=== PATIENT | male | born 1995 | race Caucasian/White ===

== ENCOUNTER 2019-06-19 08:39 | Emergency (ER) | payer SELFPAY ==
[~2019-06-19] VITALS: Ht 167.6 cm; Wt 76.2 kg
[2019-06-19] MEDS ORDERED: ALBUTEROL/IPRATROPIUM 2.5MG/0.5MG, 3 ML ONE (09:46)
[2019-06-19] MEDS ORDERED: ALBUTEROL/IPRATROPIUM 2.5MG/0.5MG, 3 ML NPPB SCH (10:00)
[2019-06-19 10:10] LABS: BASOPHILS # (AUTO) 0.05 x10^3/uL (0-0.1); BASOPHILS % (AUTO) 0 % (0-1); EOSINOPHILS # (AUTO) 0.22 x10^3/uL (0-0.4); EOSINOPHILS % (AUTO) 2 % (1-7); LYMPHOCYTES # (AUTO) 2.26 x10^3/uL (1-3.4); LYMPHOCYTES % (AUTO) 17 % (22-44); MD NO; MEAN CORPUSCULAR HEMOGLOBIN 31.5 pg (27.5-34.5); MEAN CORPUSCULAR VOLUME 92.8 fL (81-97); MEAN PLATELET VOLUME 8.4 fL (7.4-10.4); MONOCYTES # (AUTO) 0.86 x10^3/uL (0.2-0.8); MONOCYTES % (AUTO) 6 % (2-9); NEUTROPHILS # (AUTO) 10.04 x10^3/uL (1.8-6.8); NEUTROPHILS % (AUTO) 75 % (42-75); PLATELET COUNT 227 x10^3/uL (130-400); RED BLOOD COUNT 5.68 x10^6/uL (4.38-5.82); RED CELL DISTRIBUTION WIDTH 12.8 % (9.4-14.8)
[2019-06-19 10:22] LABS: ALBUMIN 4.3 g/dL (3.4-5.0); ANION GAP 6 mmol/L (5-15); CALCIUM 9.9 mg/dL (8.5-10.1); CHLORIDE 109 mmol/L (98-107); CREATININE 1.04 mg/dL (0.7-1.3)
[2019-06-19 10:36] VITALS: BP 116/71
== END 2019-06-19 11:31 | disposition home or self-care (01) ==
LOC: ED 09:17
DX: J45.909 Unspecified asthma, uncomplicated (principal); R42 Dizziness and giddiness; J21.9 Acute bronchiolitis, unspecified; F17.210 Nicotine dependence, cigarettes, uncomplicated
CPT/HCPCS: 36415; 71046; 80048; 82040; 85025; 93005; 94640; 99284; J7512; J7620

== ENCOUNTER 2019-09-23 13:09 | Emergency (ER) | payer MEDICAID ==
[~2019-09-23] VITALS: Ht 167.6 cm; Wt 79.7 kg
--- NOTE | 2019-09-23 13:31 | NUR ---
BREAK RN: PT CAME IN CO OF LOWER ABD PAIN. "RIGHT BELOW BELLY BUTTON". CO OF NVD AND HOT FLASHES WELL. STARTED AROUND 2200 LAST NIGHT. SAYS PAIN IS A 8/10. BLANKET PROVIDED. CALL LIGHT WITHIN REACH
[2019-09-23] MEDS ORDERED: ONDANSETRON 2MG/ML, 2ML IVPush ONE (14:00)
[2019-09-23] MEDS ORDERED: SODIUM CHLORIDE 0.9% 1,000ML IVBOLUS ONE (14:00)
[2019-09-23] MEDS ORDERED: ONDANSETRON 2MG/ML, 2ML ONE (14:08)
[2019-09-23] MEDS ORDERED: MORPHINE SULFATE 4 MG/ML, 1ML ONE ×2 (14:08→15:35)
[2019-09-23 14:10] LABS: MICROSCOPIC NOT IND
[2019-09-23] MEDS: MORPHINE SULFATE 4 MG/ML, 1ML IVPush PRN ×2 (14:10→15:37)
[2019-09-23 14:13] LABS: BASOPHILS # (AUTO) 0.04 x10^3/uL (0-0.1); BASOPHILS % (AUTO) 0 % (0-1); EOSINOPHILS # (AUTO) 0.26 x10^3/uL (0-0.4); EOSINOPHILS % (AUTO) 2 % (1-7); LYMPHOCYTES # (AUTO) 2.35 x10^3/uL (1-3.4); LYMPHOCYTES % (AUTO) 22 % (22-44); MD NO; MEAN CORPUSCULAR HEMOGLOBIN 31.6 pg (27.5-34.5); MEAN CORPUSCULAR HGB CONC 34.3 g/dL (33.2-36.2); MEAN CORPUSCULAR VOLUME 92.1 fL (81-97); MEAN PLATELET VOLUME 8.7 fL (7.4-10.4); MONOCYTES # (AUTO) 0.78 x10^3/uL (0.2-0.8); MONOCYTES % (AUTO) 7 % (2-9); NEUTROPHILS # (AUTO) 7.47 x10^3/uL (1.8-6.8); NEUTROPHILS % (AUTO) 69 % (42-75); PLATELET COUNT 222 x10^3/uL (130-400); RED CELL DISTRIBUTION WIDTH 13.4 % (9.4-14.8)
[2019-09-23 14:19] LABS: CULTURE INDICATED? NO
[2019-09-23 14:24] LABS: ALANINE AMINOTRANSFERASE 80 U/L (12-78); ALBUMIN 4.2 g/dL (3.4-5.0); ANION GAP 5 mmol/L (5-15); CHLORIDE 110 mmol/L (98-107); CREATININE 1.24 mg/dL (0.7-1.3)
[2019-09-23 14:26] LABS: ALKALINE PHOSPHATASE 96 U/L (45-117); TOTAL PROTEIN 7.8 g/dL (6.4-8.2)
[2019-09-23] MEDS ORDERED: OMNIPAQUE 350 MG/ML, 100ML BOTTLE ONE (14:47)
[2019-09-23] MEDS ORDERED: KETOROLAC 30 MG/1 ML IVPush ONE (15:30)
[2019-09-23] MEDS ORDERED: KETOROLAC 30 MG/1 ML ONE (15:35)
[2019-09-23 16:47] VITALS: BP 122/78
== END 2019-09-23 16:57 | disposition home or self-care (01) ==
LOC: ED 16:30
DX: R10.31 Right lower quadrant pain (principal); R11.2 Nausea with vomiting, unspecified; R19.7 Diarrhea, unspecified
CPT/HCPCS: 36415; 74177; 80053; 81003; 83690; 85025; 96361; 96374; 96375; 96376; 99285; J1885; J2270; J2405; J7030; Q9967

== ENCOUNTER 2020-03-04 05:21 | Emergency (ER) | payer MEDICAID ==
[~2020-03-04] VITALS: Ht 177.8 cm; Wt 90.0 kg
[2020-03-04 05:26] VITALS: BP 139/80
[2020-03-04] MEDS ORDERED: SODIUM CHLORIDE FLUSH 10ML SYR IVF ONE (05:30)
[2020-03-04] MEDS ORDERED: KETOROLAC 30 MG/1 ML IVPush ONE (05:30)
[2020-03-04] MEDS ORDERED: SODIUM CHLORIDE 0.9% 1,000ML IVBOLUS ONE (05:30)
[2020-03-04] MEDS ORDERED: MAALOX/HYOSCYAMINE/LIDOCAINE 45 ML BTL PO ONE (05:30)
[2020-03-04] MEDS ORDERED: KETOROLAC 30 MG/1 ML ONE (05:32)
[2020-03-04] MEDS ORDERED: MAALOX/HYOSCYAMINE/LIDOCAINE 45 ML BTL ONE (05:32)
[2020-03-04] MEDS ORDERED: HYDROmorphone 1 MG/ML, 1ML INJ ONE (06:20)
[2020-03-04] MEDS ORDERED: HYDROmorphone 1 MG/ML, 1ML INJ IVPush ONE (06:30)
== END 2020-03-04 06:55 | disposition home or self-care (01) ==
LOC: ED 06:28
DX: R10.84 Generalized abdominal pain (principal); R11.2 Nausea with vomiting, unspecified; R19.7 Diarrhea, unspecified; J45.909 Unspecified asthma, uncomplicated
CPT/HCPCS: 96374; 96375; 99284; J1170; J1885; J7030

== ENCOUNTER 2020-06-28 05:34 | Emergency (ER) | payer MEDICAID ==
[~2020-06-28] VITALS: Ht 167.6 cm; Wt 84.1 kg
--- NOTE | 2020-06-28 05:51 | NUR ---
EKG DONE IN TRIAGE.
--- NOTE | 2020-06-28 06:05 | NUR ---
Patient presents to ER c/o CP since waking up early this morning. He also c/o SOb. Patient started driving to work and suddenly became dizzy. Patient is in NAD. REspirations even and unlabored.
[2020-06-28] MEDS ORDERED: MAALOX/HYOSCYAMINE/LIDOCAINE 45 ML BTL PO ONE (06:30)
[2020-06-28 06:52] VITALS: BP 127/83
--- NOTE | 2020-06-28 07:06 | NUR ---
Report given to LYNDON Rico. Patient care transferred.
[2020-06-28] MEDS ORDERED: MAALOX/HYOSCYAMINE/LIDOCAINE 45 ML BTL ONE (07:07)
[2020-06-28 07:10] LABS: BASOPHILS % (AUTO) 1 % (0-1); EOSINOPHILS % (AUTO) 5 % (1-7); LYMPHOCYTES % (AUTO) 29 % (22-44); MEAN CORPUSCULAR HEMOGLOBIN 32.1 pg (27.5-34.5); MEAN CORPUSCULAR HGB CONC 34.6 g/dL (33.2-36.2); MEAN PLATELET VOLUME 8.5 fL (7.4-10.4); MONOCYTES % (AUTO) 7 % (2-9); NEUTROPHILS % (AUTO) 58 % (42-75); PLATELET COUNT 197 x10^3/uL (130-400); RED BLOOD COUNT 5.32 x10^6/uL (4.38-5.82); RED CELL DISTRIBUTION WIDTH 13.8 % (9.4-14.8)
[2020-06-28 07:12] LABS: MD NO
--- NOTE | 2020-06-28 07:15 | NUR ---
PT MEDICATED PER MAR, VSS, GIVEN BLANKET PER REQUEST. NO OTHER NEEDS AT THIS TIME
[2020-06-28 07:21] LABS: ALBUMIN 3.8 g/dL (3.4-5.0); CALCIUM 8.9 mg/dL (8.5-10.1)
[2020-06-28 07:31] LABS: ALANINE AMINOTRANSFERASE 98 U/L (12-78); ALKALINE PHOSPHATASE 90 U/L (45-117); BILIRUBIN,TOTAL 0.6 mg/dL (0.2-1.0); CREATININE 1.01 mg/dL (0.7-1.3); TROPONIN I < 0.015 ng/mL (0.000-0.045)
[2020-06-28 07:34] LABS: ANION GAP 6 mmol/L (5-15); CHLORIDE 109 mmol/L (98-107)
--- NOTE | 2020-06-28 07:58 | NUR ---
Patient given discharge instructions and they have confirmed that they understand the instructions. Patient ambulatory with steady gait.
== END 2020-06-28 08:00 | disposition home or self-care (01) ==
LOC: ED 06:21
DX: R07.89 Other chest pain (principal); J45.909 Unspecified asthma, uncomplicated
CPT/HCPCS: 36415; 71045; 80053; 83690; 84484; 85025; 93005; 99285

== ENCOUNTER 2020-07-27 05:08 | Emergency (ER) | payer MEDICAID ==
[~2020-07-27] VITALS: Ht 167.6 cm; Wt 88.0 kg
[2020-07-27] MEDS ORDERED: ONDANSETRON 2MG/ML, 2ML IVPush ONE (05:30)
[2020-07-27] MEDS ORDERED: DICYCLOMINE 10 MG/ML, 2ML IM ONE (05:30)
[2020-07-27] MEDS ORDERED: SODIUM CHLORIDE 0.9% 1,000ML IVBOLUS ONE (05:30)
[2020-07-27] MEDS ORDERED: SODIUM CHLORIDE FLUSH 10ML SYR IVF ONE (05:30)
[2020-07-27] MEDS ORDERED: FAMOTIDINE 20 MG/2 ML IV ONE (05:30)
[2020-07-27] MEDS ORDERED: ONDANSETRON 2MG/ML, 2ML ONE (05:54)
[2020-07-27] MEDS ORDERED: FAMOTIDINE 20 MG/2 ML ONE (05:55)
[2020-07-27] MEDS ORDERED: DICYCLOMINE 10 MG/ML, 2ML ONE (05:55)
[2020-07-27 06:01] LABS: BASOPHILS % (AUTO) 1 % (0-1); EOSINOPHILS % (AUTO) 4 % (1-7); LYMPHOCYTES % (AUTO) 31 % (22-44); MEAN CORPUSCULAR HEMOGLOBIN 32.1 pg (27.5-34.5); MEAN CORPUSCULAR HGB CONC 35.1 g/dL (33.2-36.2); MEAN PLATELET VOLUME 8.4 fL (7.4-10.4); MONOCYTES % (AUTO) 7 % (2-9); NEUTROPHILS % (AUTO) 57 % (42-75); PLATELET COUNT 202 x10^3/uL (130-400); RED BLOOD COUNT 5.28 x10^6/uL (4.38-5.82); RED CELL DISTRIBUTION WIDTH 13.4 % (9.4-14.8)
[2020-07-27 06:04] LABS: ALANINE AMINOTRANSFERASE 114 U/L (12-78); ALBUMIN 3.9 g/dL (3.4-5.0); ANION GAP 8 mmol/L (5-15); CALCIUM 9.1 mg/dL (8.5-10.1); CHLORIDE 110 mmol/L (98-107)
[2020-07-27 06:07] LABS: ALKALINE PHOSPHATASE 98 U/L (45-117); BILIRUBIN,TOTAL 0.5 mg/dL (0.2-1.0)
[2020-07-27 06:13] LABS: MD NO
--- NOTE | 2020-07-27 06:55 | NUR ---
BEDSIDE REPORT GIVEN TO YESSI HANEY. PAIN REASSESSMENT COMPLETED - 11/20 WITH C/O CRAMPING EPISODES DECREASING. IN NAD. RESTING IN BED
--- NOTE | 2020-07-27 07:03 | NUR ---
rec'd report from night stocker. pt resting in bed. states his pain comes and goes at a scale of 7/10. appears in acute distress. vss. UA sent. updated on plan of care
[2020-07-27 07:17] LABS: MICROSCOPIC NOT IND
--- NOTE | 2020-07-27 07:37 | NUR ---
pt is c/o pain that is getting worse. provider notified.
[2020-07-27] MEDS ORDERED: MORPHINE SULFATE 4 MG/ML, 1ML ONE ×2 (07:53→08:54)
[2020-07-27] MEDS: MORPHINE SULFATE 4 MG/ML, 1ML IVPush PRN ×3 (07:54→08:57)
--- NOTE | 2020-07-27 08:34 | NUR ---
US AT BEDSIDE
--- NOTE | 2020-07-27 09:20 | NUR ---
pt states he is still in pain.
[2020-07-27 09:43] VITALS: BP 109/71
== END 2020-07-27 09:53 | disposition home or self-care (01) ==
LOC: ED 07:36
DX: K52.9 Noninfective gastroenteritis and colitis, unspecified (principal); R07.89 Other chest pain; R42 Dizziness and giddiness; R10.31 Right lower quadrant pain; R11.2 Nausea with vomiting, unspecified
CPT/HCPCS: 36415; 76700; 80053; 81003; 83690; 85025; 96361; 96372; 96374; 96375; 96376; 99285; J0500; J2270; J2405; J7030

== ENCOUNTER 2021-01-17 13:03 | Emergency (ER) | payer MEDICAID ==
[~2021-01-17] VITALS: Ht 167.6 cm; Wt 92.0 kg
[2021-01-17 13:05] VITALS: BP 147/106
--- NOTE | 2021-01-17 13:38 | NUR ---
Pt brought back from triage with cheif complaint of right arm pain with numbness and tingling starting this am upon waking. PT denies trauma.
[2021-01-17] MEDS ORDERED: METHOCARBAMOL 750 MG TABLET ONE ×2 (13:59→14:11)
[2021-01-17] MEDS ORDERED: OXYcodone/APAP 5/325MG TABLET PO ONE (14:00)
[2021-01-17] MEDS ORDERED: KETOROLAC 30 MG/1 ML ONE (14:00)
[2021-01-17] MEDS ORDERED: METHOCARBAMOL 750 MG TABLET PO ONE (14:00)
[2021-01-17] MEDS ORDERED: OXYcodone/APAP 5/325MG TABLET ONE (14:00)
[2021-01-17] MEDS ORDERED: KETOROLAC 30 MG/1 ML IM ONE (14:00)
--- NOTE | 2021-01-17 14:19 | NUR ---
Pt to imaging
== END 2021-01-17 15:10 | disposition home or self-care (01) ==
LOC: ED 14:00
DX: M54.12 Radiculopathy, cervical region (principal); M25.511 Pain in right shoulder; J45.909 Unspecified asthma, uncomplicated
CPT/HCPCS: 72050; 73030; 96372; 99284; J1885